=== PATIENT | male | born 1955 ===

== ENCOUNTER 2018-12-18 13:58 | Emergency (ER) | payer OTHER ==
--- NOTE | 2018-12-18 14:36 | UC ---
Eye Complaint HPI - HPI Summary HPI Summary: 63-year-old male presents with complaints of bilateral eye redness and drainage. States that on 12/07/2018 he was grinding a copper baseball sewer hand cap and he was accidentally splashed in the eyes with a combination of metal fragments and sewage. Reports he was wearing eyeglasses but not full eye protection. States he immediately flushed the eyes and they did feel better until later that evening when he continued to have a foreign body sensation in the eyes. He was seen at an urgent care center on 12/09/2018. His home in [place] and was told that no foreign bodies were seen in the eye. He was not started on any antibiotic ophthalmic drops or ointments. States the foreign body sensation subsided after a couple of days but he has continued to have persistent bilateral eye redness. States that on 12/12/2018 the redness began to progressively worsen and over the past 3-4 days he has been noting some purulent discharge from both his eyes. Reports that since the drainage started he is noticed some lowering of his vision chest is clear when he uses an over- the-counter lubricating eyedrop. Symptoms are associated with some eye itching. Denies fever, chills, photophobia, eye pain, diplopia, or URI symptoms. - History of Current Complaint Chief Complaint: UCEye Stated Complaint: EYE INJURY Time Seen by Provider: 12/18/18 14:06 Hx Obtained From: Patient Pain Intensity: 0 - Allergies/Home Medications Allergies/Adverse Reactions: Allergies Allergy/AdvReac Type Severity Reaction Status Date / Time No Known Allergies Allergy Verified 12/18/18 14:06 Home Medications: Home Medications NK [No Home Medications Reported] 12/18/18 [History Confirmed 12/18/18] PMH/Surg Hx/FS Hx/Imm Hx Previously Healthy: Yes - Denies significant PMH - Surgical History Surgical History: None - Family History Known Family History: Positive: Non-Contributory - Social History Occupation: Employed Full-time Lives: With Family Alcohol Use: Weekly Substance Use Type: None Smoking Status (MU): Heavy Every Day Tobacco Smoker Amount Used/How Often: 1/2 PPD - Immunization History Most Recent Tetanus Shot: 2016 Review of Systems All Other Systems Reviewed And Are Negative: Yes Constitutional: Negative: Fever, Chills Eyes: Positive: Blurred Vision, Drainage, Eye Redness. Negative: Diplopia, Photophobia ENT: Negative: Sore Throat, Ear Ache, Nasal Discharge, Sinus Congestion, Sinus Pain/Tenderness Respiratory: Negative: Cough Cardiovascular: Positive: Negative Gastrointestinal: Positive: Negative Genitourinary: Positive: Negative Musculoskeletal: Positive: Negative Neurological: Positive: Negative Is Patient Immunocompromised?: No Physical Exam - Summary Physical Exam Summary: GENERAL APPEARANCE: Alert and cooperative adult male who appears older than stated age and appears to be in no acute distress. EYES: Significant bilateral chemosis with purulent drainage. PERRL, EOM intact. Vision is grossly intact. EARS: External auditory canals and tympanic membranes clear, hearing grossly intact. NOSE: No nasal discharge. THROAT: Pharynx normal. No tonsilar inflammation, swelling, exudate, or lesions. Uvula midline. Oral cavity normal. Teeth and gingiva in good general condition. NECK: Neck supple, non-tender without lymphadenopathy. CARDIAC: Normal S1 and S2. No S3, S4 or murmurs. Rhythm is regular. There is no peripheral edema, cyanosis or pallor. Extremities are warm and well perfused. Capillary refill is less than 2 seconds. Peripheral pulses intact. LUNGS: Clear to auscultation without rales, rhonchi, wheezing or diminished breath sounds. ABDOMEN: Positive bowel sounds. Soft, nondistended, nontender. No guarding or rebound. No masses or hepatosplenomegally. MUSKULOSKELETAL: ROM intact to all extremities. No joint erythema or tenderness. Normal muscular development. Normal gait. SKIN: Skin normal color, texture and turgor with no lesions or eruptions. Triage Information Reviewed: Yes Vital Signs: Initial Vital Signs Temp 98.4 F 12/18/18 14:07 Pulse 79 12/18/18 14:07 Resp 18 12/18/18 14:07 BP 141/96 12/18/18 14:07 Pulse Ox 96 12/18/18 14:07 Vital Signs Reviewed: Yes Eye Complaint Course/Dx - Course Course Of Treatment: 63-year-old male presents with complaints of bilateral eye redness and drainage. States that on 12/07/2018 he was grinding a copper baseball sewer hand cap and he was accidentally splashed in the eyes with a combination of metal fragments and sewage. Reports he was wearing eyeglasses but not full eye protection. States he immediately flushed the eyes and they did feel better until later that evening when he continued to have a foreign body sensation in the eyes. He was seen at an urgent care center on 12/09/2018. His home in [place] and was told that no foreign bodies were seen in the eye. He was not started on any antibiotic ophthalmic drops or ointments. States the foreign body sensation subsided after a couple of days but he has continued to have persistent bilateral eye redness. States that on 12/12/2018 the redness began to progressively worsen and over the past 3-4 days he has been noting some purulent discharge from both his eyes. Reports that since the drainage started he is noticed some lowering of his vision chest is clear when he uses an over- the-counter lubricating eyedrop. Symptoms are associated with some eye itching. Denies fever, chills, photophobia, eye pain, diplopia, or URI symptoms. Afebrile. Hypertensive otherwise vital signs stable. On exam he was noted to have significant chemosis of the bilateral eyes with purulent drainage noted. Perrl. Extraocular eye movements intact. Vision was grossly intact. Discussed with the patient that considering the mechanism injury and the duration of his symptoms I would recommend urgent evaluation by ophthalmology. I was able to arrange for an urgent evaluation at [facility]. Patient is to go directly to the clinic for his evaluation. He is agreeable to this plan of care and is electing to transport via private vehicle with his friend driving. - Differential Dx/Diagnosis Differential Diagnosis/HQI/PQRI: Conjunctivitis, Foreign Body, Keratitis Provider Diagnosis: Conjunctivitis Discharge - Sign-Out/Discharge Documenting (check all that apply): Patient Departure All imaging exams completed and their final reports reviewed: No Studies - Discharge Plan Condition: Stable Disposition: HOME Patient Education Materials: Conjunctivitis (ED) Referrals: No Primary Care Phys,NOPCP [Primary Care Provider] - Paulino Alford MD [Medical Doctor] - (Go directly to the office.) Additional Instructions: With the mechanism of injury to your eyes and the duration of your symptoms I am recommend an urgent evaluation by ophthalmology. Go directly to their office from here. - Billing Disposition and Condition Condition: STABLE Disposition: Home
== END 2018-12-18 14:48 | disposition home or self-care (01) ==
LOC: UCEAST 13:58
DX: H10.9 Unspecified conjunctivitis (principal); F17.210 Nicotine dependence, cigarettes, uncomplicated
CPT/HCPCS: 99201; G0463